=== PATIENT | male | born 1995 | race Caucasian/White ===

== ENCOUNTER 2025-03-31 09:27 | Emergency (ER) | payer OTHER ==
[~2025-03-31] VITALS: Ht 182.9 cm; Wt 103.5 kg
[2025-03-31] MEDS ORDERED: METHOCARBAMOL 1,000 MG/10 ML VIAL IM ONE (10:50)
[2025-03-31 11:31] LABS: BASO # 0.1 10^3/uL (0.0-0.2); BASO % 0.4 % (0.0-1.0); EOS # 0.0 10^3/uL (0.0-0.5); EOS % 0.1 % (0.0-3.0); LYMPH # 1.3 10^3/uL (1.5-5.0); LYMPH % 7.5 % (24.0-44.0); MONO # 0.8 10^3/uL (0.0-0.8); MONO % 4.5 % (2.0-8.0); NEUTROPHILS # 14.5 10^3/uL (1.5-8.5); NEUTROPHILS % 87.0 % (36.0-66.0); PLATELET COUNT, AUTOMATED 315 10^3/uL (150-450)
[2025-03-31] MEDS: KETOROLAC 60 MG/2 ML VIAL IM ONE (11:42)
[2025-03-31] MEDS: NS (Normal Saline) 0.9% 1,000 ML IV ONE (11:43)
[2025-03-31] MEDS: LIDOCAINE 5% PATCH TD ONE (11:43)
[2025-03-31] MEDS: METHOCARBAMOL 1,000 MG/10 ML VIAL IV ONE (12:01)
[2025-03-31 12:18] LABS: ALT/SGPT 59.0 U/L (7.0-40); AST/SGOT 66.0 U/L (<34); CALCIUM LEVEL 9.5 MG/DL (8.5-10.1); CARBON DIOXIDE LEVEL 23.8 MMOL/L (20-31); CHLORIDE LEVEL 105.0 MMOL/L (98-107); CPK CREATINE PHOSPHOKINASE 1239.0 U/L (46-171); CREATININE FOR GFR 1.52 MG/DL (0.70-1.30); GLOMERULAR FILTRATION RATE 63.6 (>60); POTASSIUM SERUM 5.2 MMOL/L (3.5-5.1); SODIUM LEVEL 141.0 MMOL/L (136-145)
[2025-03-31] MEDS ORDERED: METH-1164 PO (13:34)
[2025-03-31] MEDS ORDERED: LIDO1ADH93 TD (13:34)
[2025-03-31] MEDS ORDERED: ACET-907 PO (13:34)
[2025-03-31] MEDS ORDERED: MEDR4PAK PO (13:34)
[2025-03-31 14:24] LABS: CALCIUM LEVEL 9.0 MG/DL (8.5-10.1); CARBON DIOXIDE LEVEL 26.0 MMOL/L (20-31); CHLORIDE LEVEL 105.0 MMOL/L (98-107); CREATININE FOR GFR 1.43 MG/DL (0.70-1.30); GLOMERULAR FILTRATION RATE 68.5 (>60); POTASSIUM SERUM 5.1 MMOL/L (3.5-5.1); SODIUM LEVEL 140.0 MMOL/L (136-145)
[2025-03-31 14:34] LABS: CPK CREATINE PHOSPHOKINASE 1381.0 U/L (46-171)
[2025-03-31 14:50] VITALS: BP 121/72; TEMP 97.6; O2SAT 98
== END 2025-03-31 14:53 | disposition home or self-care (01) ==
LOC: M ED 09:27
DX: S39.012A Strain of muscle, fascia and tendon of lower back, initial encounter (principal); Y92.9 Unspecified place or not applicable; Y93.9 Activity, unspecified; Y99.9 Unspecified external cause status; Z79.1 Long term (current) use of non-steroidal anti-inflammatories (NSAID); Z79.899 Other long term (current) drug therapy
CPT/HCPCS: 72131; 80048; 80053; 82550; 85025; 96361; 96372; 96374; 99284; J1885; J2800; J2919

== ENCOUNTER 2025-04-25 13:38 | Inpatient (IN) | payer OTHER ==
[~2025-04-25] VITALS: Ht 185.4 cm; Wt 104.3 kg
[~2025-04-25 13:38] MED LIST: ACET-907 PO; LIDO1ADH93 TD; MEDR4PAK PO; METH-1164 PO
[2025-04-25 14:10] LABS: BASO # 0.0 10^3/uL (0.0-0.2); BASO % 0.5 % (0.0-1.0); EOS # 0.3 10^3/uL (0.0-0.5); EOS % 3.0 % (0.0-3.0); LYMPH # 1.8 10^3/uL (1.5-5.0); LYMPH % 20.9 % (24.0-44.0); MONO # 0.7 10^3/uL (0.0-0.8); MONO % 8.2 % (2.0-8.0); NEUTROPHILS # 5.7 10^3/uL (1.5-8.5); NEUTROPHILS % 67.3 % (36.0-66.0); PLATELET COUNT, AUTOMATED 255 10^3/uL (150-450)
[2025-04-25 14:38] LABS: ALT/SGPT 86.0 U/L (7.0-40); AST/SGOT 362.0 U/L (<34); CALCIUM LEVEL 8.5 MG/DL (8.5-10.1); CARBON DIOXIDE LEVEL 24.0 MMOL/L (20-31); CHLORIDE LEVEL 103.0 MMOL/L (98-107); CK-MB VALUE MASS 14.8 NG/ML (<3.6); CREATININE FOR GFR 1.19 MG/DL (0.70-1.30); GLOMERULAR FILTRATION RATE 85.3 (>60); POTASSIUM SERUM 4.2 MMOL/L (3.5-5.1); SODIUM LEVEL 139.0 MMOL/L (136-145)
[2025-04-25 14:50] LABS: CPK CREATINE PHOSPHOKINASE 13963.0 U/L (46-171); MB/CK RELATIVE INDEX 0.1 (< OR =4)
[2025-04-25] MEDS: NS (Normal Saline) 0.9% 1,000 ML IV ONE ×2 (15:24→15:25)
[2025-04-25 15:25] LABS: MAGNESIUM LEVEL 1.8 MG/DL (1.8-2.4)
[2025-04-25 15:29] LABS: KETONE, URINE AUTO RFX NEGATIVE (NEGATIVE); LEUKOCYTE ESTERASE UR AUTO RFX NEGATIVE (NEGATIVE); NITRITE, URINE AUTO RFX NEGATIVE (NEGATIVE); RBC, URINE AUTO RFX 0 /HPF (0-3); SQUAM EPITHELIAL CELL UR AURFX 0 /HPF (0-6); WBC, URINE AUTO RFX 0 /HPF (0-3)
[2025-04-25] MEDS ORDERED: HOME MED LIST COMPLETE! XX SCH (16:05)
[2025-04-25 16:51] LABS: CK-MB VALUE MASS 13.7 NG/ML (<3.6)
[2025-04-25 17:12] LABS: CPK CREATINE PHOSPHOKINASE 12636.0 U/L (46-171); MB/CK RELATIVE INDEX 0.1 (< OR =4)
[2025-04-25] MEDS: LR 1,000 ML IV SCH (18:29)
[2025-04-25 18:53] LABS: FREE T4 1.47 NG/DL (0.89-1.76)
[2025-04-25 21:30] VITALS: BP 133/61; TEMP 98.1; O2SAT 100
[2025-04-26 05:36] VITALS: BP 98/54; TEMP 97.4; O2SAT 97
[2025-04-26 07:23] LABS: PLATELET COUNT, AUTOMATED 235 10^3/uL (150-450)
[2025-04-26 07:56] LABS: CALCIUM LEVEL 8.6 MG/DL (8.5-10.1); CARBON DIOXIDE LEVEL 28.0 MMOL/L (20-31); CHLORIDE LEVEL 108.0 MMOL/L (98-107); CREATININE FOR GFR 1.2 MG/DL (0.70-1.30); GLOMERULAR FILTRATION RATE 84.5 (>60); MAGNESIUM LEVEL 1.9 MG/DL (1.8-2.4); POTASSIUM SERUM 4.5 MMOL/L (3.5-5.1); SODIUM LEVEL 145.0 MMOL/L (136-145)
[2025-04-26 08:09] LABS: CPK CREATINE PHOSPHOKINASE 10706.0 U/L (46-171)
[2025-04-26 08:45] VITALS: BP 109/56; TEMP 97.6; O2SAT 97
[2025-04-26 16:25] VITALS: BP 130/59; TEMP 98.2; O2SAT 98
[2025-04-26 20:00] VITALS: BP 134/71; TEMP 97.8; O2SAT 96
[2025-04-27 04:30] VITALS: BP 100/54; TEMP 98.3; O2SAT 97
[2025-04-27 07:42] LABS: PLATELET COUNT, AUTOMATED 233 10^3/uL (150-450)
[2025-04-27 07:52] VITALS: BP 120/70; TEMP 97.9; O2SAT 98
[2025-04-27 08:10] LABS: CALCIUM LEVEL 8.6 MG/DL (8.5-10.1); CARBON DIOXIDE LEVEL 28.0 MMOL/L (20-31); CHLORIDE LEVEL 105.0 MMOL/L (98-107); CREATININE FOR GFR 1.15 MG/DL (0.70-1.30); GLOMERULAR FILTRATION RATE 88.9 (>60); MAGNESIUM LEVEL 1.8 MG/DL (1.8-2.4); POTASSIUM SERUM 4.3 MMOL/L (3.5-5.1); SODIUM LEVEL 141.0 MMOL/L (136-145)
[2025-04-27 08:22] LABS: CPK CREATINE PHOSPHOKINASE 9959.0 U/L (46-171)
[2025-04-27 16:30] VITALS: BP 129/68; TEMP 98.2; O2SAT 97
[2025-04-27 20:00] VITALS: BP 131/73; TEMP 99.3; O2SAT 96
[2025-04-28] VITALS: BP 134/72; TEMP 98.8; O2SAT 97
[2025-04-28 07:27] LABS: PLATELET COUNT, AUTOMATED 234 10^3/uL (150-450)
[2025-04-28 07:56] LABS: CALCIUM LEVEL 8.7 MG/DL (8.5-10.1); CARBON DIOXIDE LEVEL 28.0 MMOL/L (20-31); CHLORIDE LEVEL 105.0 MMOL/L (98-107); CREATININE FOR GFR 1.14 MG/DL (0.70-1.30); GLOMERULAR FILTRATION RATE 89.8 (>60); MAGNESIUM LEVEL 1.9 MG/DL (1.8-2.4); POTASSIUM SERUM 4.7 MMOL/L (3.5-5.1); SODIUM LEVEL 140.0 MMOL/L (136-145)
[2025-04-28 08:07] LABS: CPK CREATINE PHOSPHOKINASE 4644.0 U/L (46-171)
[2025-04-28 09:04] VITALS: BP 128/64; TEMP 97.3; O2SAT 98
== END 2025-04-28 14:45 | disposition home or self-care (01) | DRG 558 ==
LOC: M ED 13:38 → M ED INP 13:39 → M PED 21:05 → OBSVTOIN 04-27 10:04
PROVIDERS: ADMIT Family Medicine; ATTEND Family Medicine
PROC: B246ZZZ Ultrasonography of Right and Left Heart (ICD-10-PCS; principal; 2025-04-27)
DX: M62.82 Rhabdomyolysis (principal); M79.652 Pain in left thigh